=== PATIENT | male | born 1985 | race African-American/Black ===

== ENCOUNTER 2020-01-04 22:54 | Emergency (ER) | payer BC, OTHER ==
[2020-01-04] MEDS ORDERED: Sodium Chloride 0.9% 10 ML Syringe FLUSH PRN (23:27)
[2020-01-04] MEDS ORDERED: Sodium Chloride 0.9% 2.5 ML Syringe FLUSH PRN (23:27)
[2020-01-04] MEDS ORDERED: Ketorolac 15 MG/ML SDV IM ONE (23:27)
[2020-01-04] MEDS ORDERED: Sodium Chloride 0.9% 1,000 ML IV ONE (23:27)
[2020-01-04] MEDS ORDERED: Famotidine 20 MG/2 ML SDV IVPUSH ONE (23:28)
[2020-01-04] MEDS ORDERED: Ondansetron 4 MG/2 ML SDV IVPUSH ONE (23:36)
--- NOTE | 2020-01-04 23:36 | EDM.PDOC ---
ED HPI GENERAL MEDICAL PROBLEM - General Chief Complaint: Abdominal Pain Stated Complaint: HEADACHE Time Seen by Provider: 01/04/20 23:03 - History of Present Illness INITIAL COMMENTS - FREE TEXT/NARRATIVE: History of present illness: [] Patient presents with 2 days of vague symptoms such as gradual onset headache with pressure behind his eyes a sore burning throat and nausea and vomiting x1 there is been no body aches no fever no chills no coughing no trouble breathing no known exposures. He denies any other medical problems does not take any medications he did take a gram of Tylenol earlier today for his headache which was ineffective Review of systems: As per history of present illness and below otherwise all systems reviewed and negative. Past medical history: As per history of present illness and as reviewed below otherwise noncontributory. Surgical history: As per history of present illness and as reviewed below otherwise noncontributory. Social history: No reported history of drug or alcohol abuse. Family history: As per history of present illness and as reviewed below otherwise noncontributory. Physical exam: HEENT: Atraumatic, normocephalic, pupils reactive, negative for conjunctival pallor or scleral icterus, mucous membranes moist, throat clear, neck supple, nontender, trachea midline. Mild pharyngeal erythema Lungs: Clear to auscultation, breath sounds equal bilaterally, chest nontender. Heart: S1S2, regular, negative for clicks, rubs, or JVD. Abdomen: Soft, nondistended, nontender. Negative for masses or hepatosplenomegaly. Negative for costovertebral tenderness. Pelvis: Stable nontender. Genitourinary: Deferred. Rectal: Deferred. Extremities: Atraumatic, negative for cords or calf pain. Neurovascular unremarkable. Neuro: Awake, alert, oriented. Cranial nerves II through XII unremarkable. Cerebellum unremarkable. Motor and sensory unremarkable throughout. Exam nonfocal. No pronator drift no nuchal rigidity Diagnostics: [] Therapeutics: [] Impression: Headache vomiting [] Plan: Toradol Pepcid and Zofran check COVID CBC and chemistry reassess [] Definitive disposition and diagnosis as appropriate pending reevaluation and review of above. Treatments SCIENTIFIC GLASS BLOWER: Reports: Acetaminophen head Pain Score (Numeric/FACES): 5 - Related Data Allergies Allergy/AdvReac Type Severity Reaction Status Date / Time No Known Allergies Allergy Verified 01/04/20 23:12 Home Meds: Home Meds Naproxen [Naprosyn] 500 mg PO Q12HR #20 tab 01/05/20 [Rx] Past Medical History - Past Health History Medical/Surgical History: Denies Medical/Surgical History - Infectious Disease History Infectious Disease History: Reports: Chicken Pox Social & Family History - Family History Family Medical History: Noncontributory ED ROS GENERAL - Review of Systems Review Of Systems: See Below ED EXAM, GENERAL - Physical Exam Exam: See Below Course - Vital Signs Text/Narrative:: Patient's COVID is negative his lab work is unremarkable with the exception of some elevated transaminases I informed the patient of these. I recommend that he follow-up with primary care referral will be given naproxen for pain at home Last Recorded V/S: Last Vital Signs Temp 35.2 C L 01/04/20 23:09 Pulse 65 01/04/20 23:50 Resp 16 01/04/20 23:50 BP 123/80 01/04/20 23:50 Pulse Ox 97 01/04/20 23:50 - Orders/Labs/Meds Orders: Active Orders 24 hr Category Date Time Status Sodium Chloride 0.9% [Saline Flush] Med 01/04/20 23:27 Active 10 ml FLUSH ASDIRECTED PRN Sodium Chloride 0.9% [Saline Flush] Med 01/04/20 23:27 Active 2.5 ml FLUSH ASDIRECTED PRN Saline Lock Insert [OM.PC] Stat Oth 01/04/20 23:27 Ordered Medication Orders Sodium Chloride (Saline Flush) 10 ml FLUSH ASDIRECTED PRN PRN Reason: Keep Vein Open Last Admin: 01/04/20 23:47 Dose: 10 ml Documented by: [id number] Sodium Chloride (Saline Flush) 2.5 ml FLUSH ASDIRECTED PRN PRN Reason: Keep Vein Open Last Admin: 01/04/20 23:47 Dose: 2.5 ml Documented by: [id number] Labs: Laboratory Tests 01/04/20 01/04/20 01/04/20 Range/Units 11:44 11:44 23:45 WBC 4.67 (4.0-11.0) K/uL RBC 5.18 (4.50-5.90) M/uL Hgb 15.2 (13.0-17.0) g/dL Hct 46.0 (38.0-50.0) % MCV 88.8 (80.0-98.0) fL MCH 29.3 (27.0-32.0) pg MCHC 33.0 (31.0-37.0) g/dL RDW Std Deviation 40.6 (28.0-62.0) fl RDW Coeff of Lia 13 (11.0-15.0) % Plt Count 249 (150-400) K/uL MPV 9.40 (7.40-12.00) fL Neut % (Auto) 39.7 L (48.0-80.0) % Lymph % (Auto) 52.0 H (16.0-40.0) % [place] % (Auto) 6.2 (0.0-15.0) % Eos % (Auto) 1.7 (0.0-7.0) % Baso % (Auto) 0.4 (0.0-1.5) % Neut # (Auto) 1.9 (1.4-5.7) K/uL Lymph # (Auto) 2.4 (0.6-2.4) K/uL [place] # (Auto) 0.3 (0.0-0.8) K/uL Eos # (Auto) 0.1 (0.0-0.7) K/uL Baso # (Auto) 0.0 (0.0-0.1) K/uL Nucleated RBC % 0.0 /100WBC Nucleated RBCs # 0 K/uL Sodium 139 (136-148) mmol/L Potassium 4.0 (3.5-5.1) mmol/L Chloride 100 (98-107) mmol/L Carbon Dioxide 30.9 (21.0-32.0) mmol/L BUN 9 (7.0-18.0) mg/dL Creatinine 1.1 (0.8-1.3) mg/dL Est Cr Clr Drug Dosing 105.82 mL/min Estimated GFR (MDRD) > 60.0 ml/min Glucose 94 (74-106) mg/dL Calcium 8.7 (8.5-10.1) mg/dL Total Bilirubin 0.7 (0.2-1.0) mg/dL AST 494 H (15-37) IU/L ALT 253 H (14-63) IU/L Alkaline Phosphatase 84 (46-116) U/L Total Protein 7.9 (6.4-8.2) g/dL Albumin 4.4 (3.4-5.0) g/dL Globulin 3.5 (2.6-4.0) g/dL Albumin/Globulin Ratio 1.3 (0.9-1.6) SARS Virus RNA (PCR) NEGATIVE (NEGATIVE) Meds: Medications Generic Name Dose Route Start Last Admin Trade Name Freq PRN Reason Stop Dose Admin Sodium Chloride 10 ml 01/04/20 23:27 01/04/20 23:47 Saline Flush FLUSH 10 ml ASDIRECTED PRN Administration Keep Vein Open Sodium Chloride 2.5 ml 01/04/20 23:27 01/04/20 23:47 Saline Flush FLUSH 2.5 ml ASDIRECTED PRN Administration Keep Vein Open Discontinued Medications Generic Name Dose Route Start Last Admin Trade Name Freq PRN Reason Stop Dose Admin Famotidine 20 mg 01/04/20 23:28 01/04/20 23:47 Pepcid IVPUSH 01/04/20 23:29 20 mg ONETIME ONE Administration Sodium Chloride 1,000 mls @ 999 mls/hr 01/04/20 23:27 01/04/20 23:46 Normal Saline IV 01/05/20 00:27 999 mls/hr .Bolus ONE Administration Ketorolac Tromethamine 30 mg 01/04/20 23:27 01/04/20 23:46 Toradol IM 01/04/20 23:28 30 mg ONETIME ONE Administration Ondansetron HCl 4 mg 01/04/20 23:36 01/04/20 23:49 Zofran IVPUSH 01/04/20 23:37 4 mg ONETIME ONE Administration Departure - Departure Time of Disposition: 01:04 Disposition: Home, Self-Care 01 Condition: Good Clinical Impression: Headache - Discharge Information *PRESCRIPTION DRUG MONITORING PROGRAM REVIEWED*: Not Applicable *COPY OF PRESCRIPTION DRUG MONITORING REPORT IN PATIENT APRIL: Not Applicable Referrals: PCP,None [Primary Care Provider] - Forms: ED Department Discharge Additional Instructions: The following information is given to patients seen in the emergency department who are being discharged to home. This information is to outline your options for follow-up care. We provide all patients seen in our emergency department with a follow-up referral. The need for follow-up, as well as the timing and circumstances, are variable depending upon the specifics of your emergency department visit. If you don't have a primary care physician on staff, we will provide you with a referral. We always advise you to contact your personal physician following an emergency department visit to inform them of the circumstance of the visit and for follow-up with them and/or the need for any referrals to a consulting specialist. The emergency department will also refer you to a specialist when appropriate. This referral assures that you have the opportunity for follow-up care with a specialist. All of these measure are taken in an effort to provide you with optimal care, which includes your follow-up. Under all circumstances we always encourage you to contact your private physician who remains a resource for coordinating your care. When calling for follow-up care, please make the office aware that this follow-up is from your recent emergency room visit. If for any reason you are refused follow-up, please contact the [facility] Emergency Department at and asked to speak to the emergency department charge nurse. [facility] [address] [place] [address] [place] [address] Sepsis Event Note (ED) - Evaluation Sepsis Screening Result: No Definite Risk - Focused Exam Vital Signs: Vital Signs Temp Pulse Resp BP Pulse Ox 01/04/20 23:50 65 16 123/80 97 01/04/20 23:09 35.2 C L 72 16 150/86 H 97 - My Orders Last 24 Hours: My Active Orders 01/04/20 23:27 Sodium Chloride 0.9% [Saline Flush] 10 ml FLUSH ASDIRECTED PRN Sodium Chloride 0.9% [Saline Flush] 2.5 ml FLUSH ASDIRECTED PRN Saline Lock Insert [OM.PC] Stat - Assessment/Plan Last 24 Hours: My Active Orders 01/04/20 23:27 Sodium Chloride 0.9% [Saline Flush] 10 ml FLUSH ASDIRECTED PRN Sodium Chloride 0.9% [Saline Flush] 2.5 ml FLUSH ASDIRECTED PRN Saline Lock Insert [OM.PC] Stat
[2020-01-05 00:20] LABS: BLOOD UREA NITROGEN,BUN 9 mg/dL (7.0-18.0); CARBON DIOXIDE,CO2 30.9 mmol/L (21.0-32.0); CHLORIDE,CL 100 mmol/L (98-107); GLUCOSE RANDOM 94 mg/dL (74-106); SODIUM,NA 139 mmol/L (136-148)
== END 2020-01-05 01:20 | disposition home or self-care (01) ==
LOC: MW.ED 22:54
DX: R51 Headache (principal); R11.2 Nausea with vomiting, unspecified; Z20.828 Contact with and (suspected) exposure to other viral communicable diseases
CPT/HCPCS: 36415; 80053; 85025; 87635; 96361; 96372; 96374; 96375; 99284; J1885; J2405; J3490; J7030; 99283; U0002